=== PATIENT | female | born 1955 | race Caucasian/White ===

== ENCOUNTER → 2017-02-22 | Day surgery (SDC) | payer BC ==
[~2017-02-22] MED LIST: Lactated Ringers 1,000 ML IV SCH; Lactated Ringers 1,000 ML ONE; Lidocaine 4% Top Soln 5 ML LTA Syringe ONE; Lidocaine 4% Top Soln 5 ML LTA Syringe TOP ONE; Propofol 200 MG/20 ML SDV IV ONE
[2017-02-22 08:34] VITALS: BP 150/81
--- NOTE | 2017-02-22 13:02 | OR ---
DATE OF OPERATION: 02/22/2017 PREOPERATIVE DIAGNOSIS: 1. EPIGASTRIC PAIN. 2. CHRONIC GASTROESOPHAGEAL REFLUX DISEASE. POSTOPERATIVE DIAGNOSIS: 1. EPIGASTRIC PAIN. 2. CHRONIC GASTROESOPHAGEAL REFLUX DISEASE. SURGEON: Matthew Martin MD PROCEDURE: ESOPHAGOGASTRODUODENOSCOPY WITH BIOPSIES X2, MARCELINO. 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 COMPLICATIONS: None. SPECIMEN: 1. Antral biopsy x2. 2. MARCELINO. FINDINGS: 1. Full-length esophagogastroduodenoscopy. 2. Moderate acute antral gastritis. 3. Spontaneous GERD without esophagitis. RECOMMENDATIONS: I am going to initiate the patient on Protonix and Carafate. She will have a close followup with Janice Reis, her primary. INDICATIONS: The patient has a long history of reflux. She apparently has been worse over the last 2 months and over the counter medications have been ineffective, Asha recommended EGD. DESCRIPTION OF PROCEDURE: The patient was prepped and draped, placed in the left lateral decubitus position. A lubricated Olympus gastroscope was inserted over a bit, advanced into cricopharyngeus area, and easily intubated into the esophagus. The esophageal lining was benign in its entire course. The Z-line was crisp and sharp at 38 to 39 cm. There was no hiatal hernia. There was a minimal amount of visualized spontaneous reflux, but no distal esophagitis, stricturing, ulceration, or Nava's changes. The scope was easily intubated in the stomach through the pylorus and into the second and third portion of the duodenum along with duodenal bulb were completely benign. The scope was brought back into the stomach and retroflexed. The upper fundus and cardia were unremarkable in appearance. No hiatal hernia seen from below. Upon straightening, throughout the length of the stomach I found no signs of any polyps, mass, ulceration, or bleeding sites. There was some acute and mild-to- moderate active gastritis in the distal portion of the stomach throughout the antrum and towards the pylorus region. No ulceration or erosions were seen. Two biopsies in these areas were taken along with a MARCELINO test. Air was then suctioned and the scope was removed without complication. HERBER/YASH /[id number]
== END ==
LOC: CC.SDS 07:00
PROVIDERS: ATTEND Family Medicine
DX: K31.9 Disease of stomach and duodenum, unspecified (principal); E11.9 Type 2 diabetes mellitus without complications; F32.9 Major depressive disorder, single episode, unspecified; I10 Essential (primary) hypertension; E78.5 Hyperlipidemia, unspecified; K21.9 Gastro-esophageal reflux disease without esophagitis; Z88.1 Allergy status to other antibiotic agents; Z88.2 Allergy status to sulfonamides; Z79.899 Other long term (current) drug therapy; Z91.09 Other allergy status, other than to drugs and biological substances; Z90.710 Acquired absence of both cervix and uterus; Z98.890 Other specified postprocedural states; E66.9 Obesity, unspecified
CPT/HCPCS: 43239; 82962; 87081; A9270; J2704; J7120